=== PATIENT | female | born 1945 | race African-American/Black ===

== ENCOUNTER 2018-02-04 01:36 | Emergency (ER) | payer MEDICARE, MEDICAID ==
[~2018-02-04] VITALS: Ht 177.8 cm; Wt 109.0 kg
[2018-02-04] MEDS ORDERED: ONDANSETRON HCL 4MG/2ML INJ IV STA (02:34)
[2018-02-04] MEDS ORDERED: MORPHINE SULFATE 4 MG/ML CPJ (NOT FOR IM USE) IV STA (02:34)
[2018-02-04 03:10] LABS: BASOPHILS % 0.5 % (0.0-2.0); EOSINOPHILS % 0.9 % (0.0-5.0); HEMATOCRIT. 35.2 % (36.0-48.0); HEMOGLOBIN. 12.1 g/dL (12.0-16.0); LYMPHOCYTES % 18.9 % (20.0-50.0); MEAN CORPUSCULAR HEMOGLOBIN 29.8 pg (28.0-32.0); MEAN CORPUSCULAR VOLUME 86.9 fL (81.0-99.0); MEAN PLATELET VOLUME 10.6 fl (7.4-10.4); MONOCYTES % 6.3 % (2.0-8.0); NEUTROPHILS % 73.4 % (40.0-76.0); PLATELET 154 x1000/uL (130-400); RED BLOOD CELL COUNT 4.05 mill/uL (4.2-5.4); RED CELL DISTRIBUTION WIDTH 14.6 % (11.6-14.6)
[2018-02-04 03:23] LABS: PROTHROMBIN TIME 9.9 sec (9.1-11.1)
[2018-02-04 03:34] LABS: CHLORIDE 104 mEq/L (98-107)
[2018-02-04] MEDS ORDERED: POTASSIUM CHLORIDE 20MEQ TABLET SR PO ONE (04:30)
[2018-02-04 04:44] LABS: CLARITY URINE CLEAR (CLEAR); COLOR URINE YELLOW (YELLOW); KETONES URINE NEGATIVE (NEGATIVE); LEUKOCYTE ESTERASE URINE NEGATIVE (NEGATIVE); NITRITE URINE NEGATIVE (NEGATIVE); OCCULT BLOOD URINE NEGATIVE (NEGATIVE); PH URINE >=9.0 (4.5-8.0); PROTEIN URINE NEGATIVE (NEGATIVE); SPECIFIC GRAVITY URINE 1.012 (1.005-1.030); UROBILINOGEN URINE 0.2 E.U./dL (0.2-1.0)
[2018-02-04 07:06] VITALS: BP 152/80
== END 2018-02-04 07:15 | disposition home or self-care (01) ==
LOC: ER 01:36
DX: M48.061 Spinal stenosis, lumbar region without neurogenic claudication (principal); M54.32 Sciatica, left side; R51 Headache; K57.90 Diverticulosis of intestine, part unspecified, without perforation or abscess without bleeding; E11.9 Type 2 diabetes mellitus without complications; Z88.6 Allergy status to analgesic agent; Z98.890 Other specified postprocedural states
CPT/HCPCS: 36415; 70450; 74176; 80053; 81003; 83690; 85025; 85610; 96374; 96375; 99285; J2270; J2405

== ENCOUNTER → 2018-07-31 | Outpatient (CLI) | payer MEDICARE, MEDICAID ==
[~2018-07-31] MED LIST: BARIUM SULFATE 176 GM SUSP.RECON ONE; EZ-HD SUSPENSION(BARIUM SULFATE 340GM) PO ONE
== END | disposition home or self-care (01) ==
LOC: RAD 09:18
DX: K22.2 Esophageal obstruction (principal)
CPT/HCPCS: 74246

== ENCOUNTER 2021-03-01 00:04 | Inpatient (IN) | payer MEDICARE, MEDICAID ==
[~2021-03-01] VITALS: Ht 165.1 cm; Wt 95.7 kg
[2021-03-01] MEDS ORDERED: MORPHINE SULFATE 4 MG/ML CPJ (NOT FOR IM USE) IV STA (01:06)
[2021-03-01] MEDS ORDERED: ONDANSETRON HCL 4MG/2ML INJ IV STA (01:06)
[2021-03-01] MEDS ORDERED: SODIUM CHLORIDE 0.9% 1,000 ML IV ONE (01:15)
[2021-03-01 01:40] LABS: BASOPHILS % 0.5 % (0.0-2.0); EOSINOPHILS % 1.1 % (0.0-5.0); HEMOGLOBIN. 13.2 g/dL (12.0-16.0); LYMPHOCYTES % 23.3 % (20.0-50.0); MEAN CORPUSCULAR HEMOGLOBIN 28.9 pg (28.0-32.0); MEAN CORPUSCULAR VOLUME 85.4 fL (81.0-99.0); MEAN PLATELET VOLUME 10.8 fl (7.4-10.4); MONOCYTES % 3.9 % (2.0-8.0); NEUTROPHILS % 71.2 % (40.0-76.0); PLATELET 145 x1000/uL (130-400); RED BLOOD CELL COUNT 4.57 mill/uL (4.2-5.4); RED CELL DISTRIBUTION WIDTH 14.7 % (11.6-14.6)
[2021-03-01] MEDS ORDERED: MORPHINE SULFATE 2 MG/ML CPJ (NOT FOR IM USE) IV SCH (01:45)
[2021-03-01 01:50] LABS: CHLORIDE 106 mEq/L (98-107)
[2021-03-01] MEDS ORDERED: HYDROCODONE/ACETAMINOPHEN 5/325MG TABLET PO ONE (04:45)
[2021-03-01] MEDS ORDERED: AMLO10TA80 PO (05:01)
[2021-03-01] MEDS ORDERED: HYDR-4009 MT (05:11)
[2021-03-01] MEDS ORDERED: GABA800T97 PO (05:11)
[2021-03-01] MEDS ORDERED: LOSA1TAB37 PO (05:11)
[2021-03-01] MEDS ORDERED: METF-416 PO (05:11)
[2021-03-01] MEDS ORDERED: SIMV-46 PO (05:11)
[2021-03-01] MEDS ORDERED: HYDROCODONE/ACETAMINOPHEN 10/325MG TABLET PO ONE (06:00)
[2021-03-01] MEDS ORDERED: LISINOPRIL 20MG TABLET PO ONE (06:00)
[2021-03-01] MEDS ORDERED: ONDANSETRON 4MG ODT PO ONE (06:00)
[2021-03-01] MEDS ORDERED: CLONIDINE 0.1MG TABLET PO PRN (09:30)
[2021-03-01] MEDS ORDERED: ACETAMINOPHEN 325MG TABLET PO PRN (09:30)
[2021-03-01] MEDS ORDERED: ONDANSETRON HCL 4MG/2ML INJ IV PRN (09:30)
[2021-03-01] MEDS ORDERED: MAGNESIUM/ALUMINUM HYDROXIDE/SIMETHICONE 30ML UDC PO PRN (09:30)
[2021-03-01] MEDS ORDERED: POTASSIUM CHLORIDE 20MEQ TABLET SR PO SCH (09:45)
[2021-03-01 10:13] VITALS: BP 152/77
[2021-03-01] MEDS: ENOXAPARIN 30MG/0.3ML SYR SUBCUT SCH ×2 (10:31→20:21)
[2021-03-01] MEDS: GABAPENTIN 300MG CAPSULE PO SCH (10:31)
[2021-03-01] MEDS: AMLODIPINE 10MG TABLET PO SCH (10:32)
[2021-03-01 11:00] VITALS: BP 152/77
[2021-03-01 12:00] VITALS: BP 119/55
[2021-03-01] MEDS ORDERED: DEXTROSE 50% WATER 50ML SYRINGE IV PRN (12:15)
[2021-03-01] MEDS: INSULIN LISPRO 100 UNITS/ML SUBCUT SCH ×3 (13:26→20:20)
[2021-03-01 16:00] VITALS: BP 101/52
[2021-03-01] MEDS: BLOOD SUGAR DIAGNOSTIC STRIP TEST SCH ×2 (16:40→20:19)
[2021-03-01 20:00] VITALS: BP 111/53
[2021-03-01] MEDS: ATORVASTATIN CALCIUM 40MG TABLET PO SCH (20:21)
[2021-03-02] VITALS: BP 113/57
[2021-03-02 04:00] VITALS: BP 107/59
[2021-03-02] MEDS: BLOOD SUGAR DIAGNOSTIC STRIP TEST SCH ×4 (05:40→21:07)
[2021-03-02] MEDS: INSULIN LISPRO 100 UNITS/ML SUBCUT SCH ×4 (06:25→21:09)
[2021-03-02 06:44] LABS: BASOPHILS % 0.4 % (0.0-2.0); EOSINOPHILS % 1.7 % (0.0-5.0); HEMATOCRIT. 38.2 % (36.0-48.0); HEMOGLOBIN. 12.2 g/dL (12.0-16.0); LYMPHOCYTES % 40.1 % (20.0-50.0); MEAN CORPUSCULAR VOLUME 87.4 fL (81.0-99.0); MEAN PLATELET VOLUME 11.3 fl (7.4-10.4); MONOCYTES % 7.1 % (2.0-8.0); NEUTROPHILS % 50.7 % (40.0-76.0); PLATELET 131 x1000/uL (130-400); RED BLOOD CELL COUNT 4.37 mill/uL (4.2-5.4); RED CELL DISTRIBUTION WIDTH 14.7 % (11.6-14.6)
[2021-03-02 07:02] LABS: CHLORIDE 107 mEq/L (98-107)
[2021-03-02 07:17] LABS: LDL CHOLESTEROL 94 mg/dL (5-100)
[2021-03-02 07:18] LABS: HDL CHOLESTEROL 55 mg/dL (40-59)
[2021-03-02 08:00] VITALS: BP 110/61
[2021-03-02] MEDS: ENOXAPARIN 30MG/0.3ML SYR SUBCUT SCH ×2 (08:48→21:07)
[2021-03-02] MEDS: GABAPENTIN 300MG CAPSULE PO SCH (08:48)
[2021-03-02] MEDS: ASPIRIN 81MG EC TABLET PO SCH (08:48)
[2021-03-02] MEDS: HYDROMORPHONE HCL/PF 2MG/ML CPJ IV PRN (08:57)
[2021-03-02] MEDS: AMLODIPINE 10MG TABLET PO SCH (09:00)
[2021-03-02] MEDS ORDERED: NALOXONE HCL 0.4MG/ML VIAL IV PRN (10:00)
[2021-03-02] MEDS: PANTOPRAZOLE SODIUM 40 MG/VIAL IV SCH (10:02)
[2021-03-02 12:00] VITALS: BP 107/57
[2021-03-02 16:00] VITALS: BP 109/52
[2021-03-02] MEDS: DOCUSATE SODIUM 100MG CAPSULE PO PRN (18:13)
[2021-03-02 20:00] VITALS: BP 122/65
[2021-03-02] MEDS: ATORVASTATIN CALCIUM 40MG TABLET PO SCH (21:07)
[2021-03-03] VITALS (7 sets, daily range): BP systolic 120–149; BP diastolic 62–76
[2021-03-03] MEDS: HYDROMORPHONE HCL/PF 2MG/ML CPJ IV PRN (05:06)
[2021-03-03] MEDS: INSULIN LISPRO 100 UNITS/ML SUBCUT SCH ×4 (06:24→21:49)
[2021-03-03] MEDS: BLOOD SUGAR DIAGNOSTIC STRIP TEST SCH ×4 (06:24→21:46)
[2021-03-03] MEDS: PANTOPRAZOLE SODIUM 40 MG/VIAL IV SCH (08:55)
[2021-03-03] MEDS: GABAPENTIN 300MG CAPSULE PO SCH (08:55)
[2021-03-03] MEDS: ASPIRIN 81MG EC TABLET PO SCH (08:55)
[2021-03-03] MEDS: AMLODIPINE 10MG TABLET PO SCH (08:56)
[2021-03-03] MEDS: ENOXAPARIN 30MG/0.3ML SYR SUBCUT SCH ×2 (08:57→21:47)
[2021-03-03] MEDS ORDERED: LORAZEPAM 2MG/ML CPJ IV PRN (10:00)
[2021-03-03] MEDS: DOCUSATE SODIUM 100MG CAPSULE PO PRN (12:50)
[2021-03-03] MEDS: HYDROCODONE/ACETAMINOPHEN 5/325MG TABLET PO PRN (12:51)
[2021-03-03] MEDS ORDERED: GADOTERATE MEGLUMINE 5 MMOL/10 ML VIAL IV ONE (19:54)
[2021-03-03] MEDS: ATORVASTATIN CALCIUM 40MG TABLET PO SCH (21:46)
[2021-03-04] VITALS: BP 127/72
[2021-03-04 04:00] VITALS: BP 155/80
[2021-03-04] MEDS: BLOOD SUGAR DIAGNOSTIC STRIP TEST SCH ×3 (06:12→16:51)
[2021-03-04] MEDS: INSULIN LISPRO 100 UNITS/ML SUBCUT SCH ×3 (06:57→16:54)
[2021-03-04] MEDS: HYDROCODONE/ACETAMINOPHEN 5/325MG TABLET PO PRN ×2 (07:13→11:46)
[2021-03-04 08:00] VITALS: BP 131/74
[2021-03-04] MEDS: PANTOPRAZOLE SODIUM 40 MG/VIAL IV SCH (09:11)
[2021-03-04] MEDS: ASPIRIN 81MG EC TABLET PO SCH (09:11)
[2021-03-04] MEDS: GABAPENTIN 300MG CAPSULE PO SCH (09:11)
[2021-03-04] MEDS: AMLODIPINE 10MG TABLET PO SCH (09:11)
[2021-03-04] MEDS: ENOXAPARIN 30MG/0.3ML SYR SUBCUT SCH (09:12)
[2021-03-04 12:00] VITALS: BP 125/76
[2021-03-04 16:00] VITALS: BP 125/56
== END 2021-03-04 17:08 | disposition home or self-care (01) | DRG 645 ==
LOC: ER 01:05 → 7EST 05:54 → EDBEDREQTM 05:58 → EDBEDREQ 05:58 → ENRESERV 08:07
PROVIDERS: ADMIT Hospitalist; ATTEND Hospitalist
DX: D35.2 Benign neoplasm of pituitary gland (principal); E11.42 Type 2 diabetes mellitus with diabetic polyneuropathy; E78.00 Pure hypercholesterolemia, unspecified; E78.5 Hyperlipidemia, unspecified; R26.89 Other abnormalities of gait and mobility; E87.6 Hypokalemia; R20.0 Anesthesia of skin; I10 Essential (primary) hypertension; Z82.49 Family history of ischemic heart disease and other diseases of the circulatory system; Z79.899 Other long term (current) drug therapy; Z79.84 Long term (current) use of oral hypoglycemic drugs
CPT/HCPCS: 36415; 70544; 70553; 71045; 80053; 80061; 82962; 83036; 84484; 85025; 85651; 93005; 93970; 99285; A9577; C9113; J1170; J1650; J1815; J2060; J2270; J2405; J7030; Q0162

== ENCOUNTER 2022-07-21 12:02 | Emergency (ER) | payer MEDICARE, MEDICAID ==
[~2022-07-21] VITALS: Ht 172.7 cm; Wt 91.0 kg
[~2022-07-21 12:02] MED LIST changes: +AMLO10TA80 PO; -BARIUM SULFATE 176 GM SUSP.RECON ONE; -EZ-HD SUSPENSION(BARIUM SULFATE 340GM) PO ONE; +GABA800T97 PO; +HYDR-4009 MT; +LOSA1TAB37 PO; +METF-416 PO; +SIMV-46 PO
[2022-07-21] MEDS ORDERED: HYDROCODONE/ACETAMINOPHEN 5/325MG TABLET PO ONE (13:00)
[2022-07-21] MEDS ORDERED: KETOROLAC 60MG/2ML VIAL IM ONE (15:00)
[2022-07-21] MEDS ORDERED: HYDR-4001 MT (15:05)
[2022-07-21] MEDS ORDERED: IBUP-2028 MT (15:05)
[2022-07-21 16:07] VITALS: BP 115/64
== END 2022-07-21 16:09 | disposition home or self-care (01) ==
LOC: ER 12:02
DX: S42.251A Displaced fracture of greater tuberosity of right humerus, initial encounter for closed fracture (principal); R55 Syncope and collapse; R51.9 Headache, unspecified; M25.551 Pain in right hip; I11.0 Hypertensive heart disease with heart failure; E11.9 Type 2 diabetes mellitus without complications; I50.9 Heart failure, unspecified; W01.198A Fall on same level from slipping, tripping and stumbling with subsequent striking against other object, initial encounter; Y93.01 Activity, walking, marching and hiking; Y92.481 Parking lot as the place of occurrence of the external cause; M54.2 Cervicalgia; Z79.899 Other long term (current) drug therapy
CPT/HCPCS: 70450; 70486; 71045; 72100; 72125; 73030; 73502; 93005; 96372; 99285; J1885; A4565

== ENCOUNTER 2024-07-26 19:38 | Emergency (ER) | payer MEDICARE, MEDICAID ==
[~2024-07-26] VITALS: Ht 165.1 cm; Wt 73.0 kg
[~2024-07-26 19:38] MED LIST changes: +HYDR-4001 MT; +IBUP-2028 MT
[2024-07-26 19:44] VITALS: O2SAT 100
[2024-07-26] MEDS ORDERED: ONDANSETRON HCL 4MG/2ML INJ IV STA (23:15)
[2024-07-26] MEDS ORDERED: MORPHINE SULFATE 4 MG/ML INJ (FOR IV/IM USE) IV STA (23:15)
[2024-07-26 23:47] LABS: BASOPHILS % 0.8 % (0.0-2.0); DIFFERENTIAL COMMENT 0; EOSINOPHILS % 2.6 % (0.0-5.0); HEMATOCRIT. 40.1 % (36.0-48.0); HEMOGLOBIN. 12.9 g/dL (12.0-16.0); LYMPHOCYTES % 41.9 % (20.0-50.0); MEAN CORPUSCULAR HEMOGLOBIN 28.7 pg (28.0-32.0); MEAN CORPUSCULAR HGB CONC 32.3 g/dL (31.0-37.0); MEAN CORPUSCULAR VOLUME 88.9 fL (81.0-99.0); MEAN PLATELET VOLUME 10.5 fl (7.4-10.4); MONOCYTES % 8.1 % (2.0-8.0); NEUTROPHILS % 46.6 % (40.0-76.0); PLATELET 141 x1000/uL (130-400); RED BLOOD CELL COUNT 4.51 mill/uL (4.2-5.4); RED CELL DISTRIBUTION WIDTH 13.2 % (11.6-14.6); WHITE BLOOD COUNT 2.8 x1000/uL (4.5-11.0)
[2024-07-26 23:53] LABS: CHLORIDE 104 mEq/L (98-107); POTASSIUM 3.8 mEq/L (3.5-5.1); SODIUM 139 mEq/L (136-145)
[2024-07-26 23:54] LABS: CALCIUM 9.3 mg/dL (8.7-10.4); CARBON DIOXIDE 28 mEq/L (21-32)
[2024-07-26 23:59] LABS: CREATININE 0.8 mg/dL (0.6-1.0); GLUCOSE 208 mg/dL (70-105); UREA NITROGEN BLOOD 14 mg/dL (9-23)
[2024-07-27] MEDS: MORPHINE SULFATE 4 MG/ML INJ (FOR IV/IM USE) IM ONE (01:25)
[2024-07-27 02:20] VITALS: BP 130/76; PULSE 77; RESP 18; TEMP 36.8; O2SAT 99
== END 2024-07-27 02:22 | disposition home or self-care (01) ==
LOC: ER 19:38
DX: S16.1XXA Strain of muscle, fascia and tendon at neck level, initial encounter (principal); S09.90XA Unspecified injury of head, initial encounter; I11.0 Hypertensive heart disease with heart failure; I50.9 Heart failure, unspecified; E11.9 Type 2 diabetes mellitus without complications; Z79.899 Other long term (current) drug therapy; Z98.890 Other specified postprocedural states; W01.0XXA Fall on same level from slipping, tripping and stumbling without subsequent striking against object, initial encounter; Y93.89 Activity, other specified; Y92.89 Other specified places as the place of occurrence of the external cause; Y99.8 Other external cause status
CPT/HCPCS: 99285; 71045; 80048; 85025; 36415; 72170; 73030; 70450; 72125; 96372; J2270